=== PATIENT | female | born 2005 | race Two or more races ===

== ENCOUNTER 2024-10-17 14:08 | Emergency (ER) | payer MEDICAID, SELFPAY ==
[2024-10-17 14:09] VITALS: BMI 25.2
[2024-10-17 15:10] VITALS: BP 110/74; PULSE 95; RESP 18; TEMP 36.8; O2SAT 98
--- NOTE | 2024-10-17 15:21 | PD.EDRME ---
Rapid Medical Screening Exam RME Arrival date/time: 10/17/24 14:08 19-year-old female presents to the emergency department with complaints of uncontrolled vomiting x 1 day. Does report had binge drinking last night. I have greeted and performed a focused initial assessment of this patient. Initial appropriate labs ordered at this time. A comprehensive ED assessment and evaluation of the patient and analysis of all test and completion of medical decision making process will be conducted by additional ED provider. Chief Complaint: Nausea/Vomiting/Diarrhea Time Seen by Provider: 10/17/24 15:04 Vital signs: Vital Signs Temperature 98.2 F 10/17/24 15:10 Pulse Rate 95 10/17/24 15:10 Respiratory Rate 18 10/17/24 15:10 Blood Pressure 110/74 10/17/24 15:10 Pulse Oximetry (%) 98 10/17/24 15:10 Oxygen Delivery Method Room Air 10/17/24 15:10
[2024-10-17 15:57] LABS: Basophils % (Auto) 0 % (0-2.5); Eosinophils % (Auto) 0 % (0-10); Hematocrit 46.9 % (36.0-46.0); Hemoglobin 15.5 g/dL (12.0-16.0); Immature Granulocytes % (Auto) 1 % (0-0); Immature Granulocytes Auto 0.07 Thou/mm3 (0.00-0.00); Lymphocytes # (Auto) 0.8 Thou/mm3 (1.0-4.8); Lymphocytes % (Auto) 5 % (10-50); Mean Corpuscular Hemoglobin 29.2 pg (25.0-35.0); Mean Corpuscular Volume 88 fL (80-100); Monocytes # (Auto) 0.4 Thou/mm3 (0.0-0.8); Monocytes % (Auto) 2 % (0-12); Neutrophils % (Auto) 92 % (37-80); Nucleated Red Blood Cell % 0 /100 WBC (0); Platelet Count 448 Thou/mm3 (140-440); RDW Standard Deviation 42.4 fL (36.4-46.3); Red Blood Count 5.31 Miln/mm3 (4.00-5.20); White Blood Count 15.3 Thou/mm3 (4.5-11.0)
[2024-10-17 16:20] LABS: Collection Type, Urine Clean Catch
[2024-10-17] MEDS: ONDANSETRON ODT 4 MG TABRAP 8 MG PO (16:26)
[2024-10-17 16:31] LABS: Alanine Aminotransferase 31 U/L (10-49); Albumin, Serum 5.4 gm/dL (3.5-5.0); Albumin/Globulin Ratio 1.7 (1.2-2.2); Alcohol, Blood Medical < 10.0 mg/dL (0-10.0); Alkaline Phosphatase 82 U/L (46-116); Anion Gap 15 (7-16); Aspartate Amino Transferase 39 U/L (0-34); BUN/Creatinine Ratio 24 Ratio (12-20); Bilirubin,Total 1.2 mg/dL (0.3-1.2); Blood Urea Nitrogen 19 mg/dL (9-23); Calcium 9.9 mg/dL (8.3-10.6); Calcium (Corrected) 9.9 mg/dL (8.5-10.1); Carbon Dioxide 23.2 mMol/L (20.0-31.0); Chloride 104 mMol/L (98-107); Creatinine (Component) 0.8 mg/dL (0.6-1.3); Estimated Creatinine Clearance 86.1 mL/min (>60); Globulin 3.1 gm/dL (2.3-3.5); Glucose 108 mg/dL (74-106); Lipase 25 U/L (12-53); Osmolality,Calculated 286 (275-295); Potassium 4.1 mMol/L (3.4-5.1); Sodium 142 mMol/L (136-145); Total Protein 8.5 gm/dL (5.7-8.2); eGFR > 60 See Note
--- NOTE | 2024-10-17 16:34 | XR_ITS ---
Examination: Fingers, left hand second digit 3 views Technique: AP, oblique, lateral views left hand second digit 3 views. Exam date and time: October 17 2024 at 1653 hrs. Indications: Injury to the hand today with second digit pain Findings: Soft tissue swelling about the second digit No acute fracture No dislocation No foreign body Impression: No acute fracture
[2024-10-17 16:39] LABS: HCG Qualitative,Urine Negative
[2024-10-17 16:44] LABS: Bacteria,Urine Rare; Bilirubin,Urine Negative (Negative); Blood,Urine Negative (Negative); Clarity,Urine Clear (Clear/Hazy); Color,Urine Yellow (Lt Yel-Yel); Glucose, Urine Negative (Negative); Ketones,Urine 4+ (Negative); Leukocyte Esterase,Urine Negative (Negative); Nitrite,Urine Negative (Negative); Protein,Urine 1+ (Neg - Trace); RBC,Urine 14 /hpf (0-3); Squamous Epithelial Cell,Urine 2 /hpf (0-5); Urobilinogen,Urine Negative mg/dL (0.0-1.0); WBC,Urine 3 /hpf (0-5)
[2024-10-17 18:30] LABS: Amphetamine/Methamp Scrn,U Negative (Negative); Barbiturate Screen,Urine Negative (Negative); Benzodiazepines Screen,Urine Negative (Negative); Benzoylecgonine Screen, Ur Negative (Negative); Fentanyl Screen,Urine Negative (Negative); Opiate Screen,Urine Negative (Negative); THC Screen,Urine Positive (Negative)
--- NOTE | 2024-10-17 21:44 | PD.EDNV ---
Nausea/Vomit./Diarrhea-RME/HPI General Chief complaint: Nausea/Vomiting/Diarrhea Stated complaint: VOMITING BILE SINCE LAST NIGHT; DRANK LAST NIGHT Time Seen by Provider: 10/17/24 15:04 Arrival date/time: 10/17/24 14:08 RME / HPI RME / HPI Narrative: 19-year-old female patient came in for evaluation regarding vomiting since early this morning. Patient was drinking last night she told me she was drinking a lot of alcohol last night. Patient also complained of pain to the left index finger after she got her finger smashed with a car door. Denies any other complaints no medication was taken prior to arrival. Related Data Home Medications ?Medication ?Instructions ?Recorded ?Confirmed dicyclomine 10 mg capsule (Bentyl) 10 mg PO TID PRN ABDOMINAL PAIN #0 08/22/13 caps ondansetron 4 mg disintegrating 4 mg PO Q12HR PRN VOMITING #0 tabs 08/22/13 tablet (Zofran ODT) Allergies Allergy/AdvReac Type Severity Reaction Status Date / Time NKA* Allergy Uncoded 10/17/24 14:11 Review of Systems Review of Systems Narrative Review of Systems: Review of system reviewed and within normal limits except mentioned in HPI ED Exam Narrative Physical exam: VITAL SIGNS: Reviewed. GENERAL APPEARANCE: Alert and interactive, follows commands, no acute distress, HEAD AND FACE: Non-traumatic. ENT: PERRL, pink conjunctivitis, eyelid no trauma, Mucous membrane dry NECK: Supple, nontender, no nuchal rigidity. CHEST: No tenderness, no crepitus, no paradoxical movement, no retractions. LUNGS: Clear, well ventilated, symmetric, no rales, no wheezing, no ronchi, no stridor, good breath sounds bilaterally. HEART: Regular rate, regular rhythm, no murmur, no gallops. ABDOMEN: Soft, positive bowel sounds, nondistended, no guarding, nontender, no rebound, no masses, RECTAL: Deferred. GENITAL: Deferred. NEUROLOGICAL: Gross motor function intact sensory function intact, Appropriate for age. MUSCULOSKELETAL: low back nontender, full range of motion. EXTREMITIES: Left index finger contusion, bruising, full range of motion. No deformity noted SKIN: Color pink, dry, no rash, no lacerations, no abrasions, no contusions. LYMPHATICS: Deferred. Course Quality Measures none Orders Category Date Time Status XR finger LT min 2V Stat Exams 10/17/24 16:34 Completed CBC Stat Lab 10/17/24 15:31 Completed Comprehensive Metabolic Panel Stat Lab 10/17/24 15:31 Completed Drug Screen,Urine Stat Lab 10/17/24 16:01 Completed HCG Qualitative,Urine Stat Lab 10/17/24 16:01 Completed Lipase Stat Lab 10/17/24 15:31 Completed NAYELI [Alcohol, Blood Medical] Stat Lab 10/17/24 15:31 Completed Urinalysis Stat Lab 10/17/24 16:01 Completed Ondansetron Odt [Zofran Odt] Med 10/17/24 15:20 Discontinued 8 mg PO X1 ONE Vital Signs Vital signs: Vital Signs Temperature 98.2 F 10/17/24 15:10 Pulse Rate 95 10/17/24 15:10 Respiratory Rate 18 10/17/24 15:10 Blood Pressure 110/74 10/17/24 15:10 Pulse Oximetry (%) 98 10/17/24 15:10 Oxygen Delivery Method Room Air 10/17/24 15:10 Nausea/Vomiting/Diarrhea [facility] Narrative [facility] Narrative:: 19-year-old female patient came in for evaluation regarding vomiting since early this morning. Patient was drinking last night she told me she was drinking a lot of alcohol last night. Patient also complained of pain to the left index finger after she got her finger smashed with a car door. Denies any other complaints no medication was taken prior to arrival. X-ray of the left index finger came back unremarkable. Results discussed with the patient. Patient's workup today all came back normal also. Patient was given Zofran with no recurrence of vomiting patient told me that she is ready to go home Patient data External records reviewed:: None Clinical information provided by:: patient Social determinants that could affect healthcare access:: alcohol use Patient has the following chronic illnesses:: None How is presenting disease/condition affected by chronic disease/condition?: no chronic disease Evaluation data The following diagnostics were reviewed and interpreted by me:: lab results and radiology exam(s) Lab and/or radiology exams considered but not ordered:: None General Interpretation Summary: See results in MDM Medications / Prescriptions Medications / Prescriptions considered but not ordered:: None Medication administrations:: Medication Administration History Discontinued Medications Ondansetron HCl (Ondansetron Odt 4 Mg Tabrap) 8 mg PO X1 ONE; Protocol Stop: 10/17/24 15:21 Last Admin: 10/17/24 16:26 Dose: 8 mg Documented By: DANNY Nunez Consultation(s) initiated? (list below): No Diagnosis Nausea Differential Diagnosis: gastroenteritis, dehydration and other (Left index finger contusion, hangover effect) Most likely diagnosis given after review of the tests above:: Nausea and vomiting, left index finger contusion Admission Indicated Admission indicated?: not indicated Admission Request Was there a request for admission?: No Disposition Plan Disposition Plan: Discharge Discharge Attestation Discharge Attestation: The patient was given an opportunity to ask questions and understood the discharge instructions. Discharge instructions specifically effects, indications for sooner follow up or return to the emergency department, and the expected course of current diagnosis. Patient condition: Stable Discharge Plan Plan Patient Disposition: HOME (Self Care) Disposition Comment: Stable Prescriptions/Referrals Prescriptions/Med Rec: No Action ondansetron [Zofran ODT] 4 MG/UDTABLET tablet,disintegrating 4 mg PO Q12HR PRN (Reason: VOMITING) Qty: 0 dicyclomine [Bentyl] 10 MG capsule 10 mg PO TID PRN (Reason: ABDOMINAL PAIN) Qty: 0 Referrals: Joseph Kilgore MD [Primary Care Provider] - In 1 week Problem List Clinical Impression: Contusion of left index finger, Vomiting Patient/Caregiver Discharge Instructions Discharge Activity: activity as tolerated Education Materials: Bruises (Contusions) Additional Instructions: Thank you for the opportunity for serving you today. You are stable for discharged . You are advised to: Follow-up with your PCP in 1 to 2 days Return to ED for worsening of symptoms Increase oral fluids Take your own ondansetron as needed for vomiting. Take [id number] Tylenol Motrin as needed for pain Print Language: Spanish Stand Alone Forms: Annie Award Info., Patient Portal Info Letter MUKESH/IRLANDA Supervising Physician MUKESH/IRLANDA Supervising Physician: MD Elzbieta
== END 2024-10-17 21:58 | disposition home or self-care (01) ==
PROVIDERS: Nurse Practitioner Primary Care; Emergency Provider Emergency Medicine; PCP Family Medicine
DX: S60.022A Contusion of left index finger without damage to nail, initial encounter (principal); R11.14 Bilious vomiting; W23.0XXA Caught, crushed, jammed, or pinched between moving objects, initial encounter; Y92.810 Car as the place of occurrence of the external cause
CPT/HCPCS: 36415; 73140; 80053; 80307; 80320; 81001; 81025; 83690; 85025; 99283; Q0162; G0480